=== PATIENT | female | born 1995 | race Caucasian/White ===

== ENCOUNTER 2018-01-17 19:07 | Outpatient (CLI) | payer OTHER ==
[~2018-01-17 19:07] MED LIST: PRENATABS FA T1 EACH
== END 2018-01-18 18:00 | disposition home or self-care (01) ==
LOC: OBS/DEL 19:07
DX: O26.892 Other specified pregnancy related conditions, second trimester (principal); Z04.1 Encounter for examination and observation following transport accident; Z34.82 Encounter for supervision of other normal pregnancy, second trimester; O60.02 Preterm labor without delivery, second trimester; V89.2XXA Person injured in unspecified motor-vehicle accident, traffic, initial encounter; Y93.89 Activity, other specified; Y92.488 Other paved roadways as the place of occurrence of the external cause; Y99.8 Other external cause status

== ENCOUNTER → 2021-01-31 | Emergency (ER) | payer OTHER ==
[~2021-01-31] VITALS: Ht 160 cm; Wt 67.6 kg
== END | disposition home or self-care (01) ==
LOC: ER 14:35
DX: R10.2 Pelvic and perineal pain (principal); Z53.21 Procedure and treatment not carried out due to patient leaving prior to being seen by health care provider

== ENCOUNTER → 2021-02-01 | Emergency (ER) | payer OTHER ==
[~2021-02-01] VITALS: Ht 160 cm; Wt 67.1 kg
== END | disposition left against medical advice (07) ==
LOC: ER 15:03
DX: N83.292 Other ovarian cyst, left side (principal); N39.0 Urinary tract infection, site not specified; R10.2 Pelvic and perineal pain